=== PATIENT | female | born 1930 | race African-American/Black ===

== ENCOUNTER 2017-09-30 15:21 | Inpatient (IN) ==
[2017-09-30] MEDS ORDERED: ONDANSETRON 4 MG/2 ML VIAL IV STA (16:10)
[2017-09-30] MEDS ORDERED: SODIUM CHLORIDE 0.9% 500 ML IV STA (16:10)
[2017-09-30 17:30] LABS: Basophils # 0.1 10*3/uL (0.0-0.2); Basophils % 0.8 % (0.0-0.8); Eosinophils # 0.1 10*3/uL (0.0-0.87); Eosinophils % 2.1 % (0.00-10.9); Hematocrit 34.5 VOL% (35.7-47.0); Hemoglobin 10.5 GM/DL (12.0-16.0); Immature Granulocytes % 0.5 %; Immature Granulocytes Absolute 0.03 #; Lymphocytes # 1.7 10*3/uL (1.4-4.0); Lymphocytes % 27.3 % (21.3-54.2); Mean Corpuscular HGB Conc 30.4 GM/DL (32-36); Mean Corpuscular Hemoglobin 25 PG (27-34); Mean Corpuscular Volume 83.3 FL (87-102); Mean Platelet Volume 12.4 FL (9.6-12.0); Monocytes # 0.8 10*3/uL (0.11-0.8); Monocytes % 12.4 % (1.7-12.7); Neutrophils # 3.4 10*3/uL (1.4-7.4); Neutrophils % 56.9 % (38.7-73.9); Red Blood Count 4.14 MC/CUMM (3.8-5.5); Red Cell Distribution Width 14.9 % (9.3-17.3); White Blood Count 6.1 T/CUMM (4-12)
[2017-09-30] MEDS ORDERED: ONDANSETRON 4 MG/2 ML VIAL ONE (17:33)
[2017-09-30 17:34] LABS: Platelet Count 92 T/CUMM (130-400)
[2017-09-30 17:44] LABS: Apearance,Urine Slightly Hazy (Clear); Bacteria,Urine Occasional /HPF (Few); Bilirubin,Urine Negative (Negative); Blood, Urine Small mg/dL (Negative); Glucose,Urine (UA) Negative (Negative); Ketones,Urine Negative (Negative); Mucus,Urine Few /LPF (Occasional); Nitrite,Urine Negative (Negative); Protein,Urine 30 MG/DL; RBC,Urine 26 /HPF (0-4); Squamous Epithelial Cell,Urine Occasional /HPF (0-10); Urine Color Yellow (Yellow); Urine Specific Gravity 1.015 (1.001-1.035); Urine Urobilinogen < 2.0 EU/DL (0.2-1.0); WBC,Urine 63 /HPF (0-6)
[2017-09-30 17:51] LABS: Barbiturates Screen,Urine Negative (Negative); Benzodiazepines Screen,Urine Negative (Negative); Cannabinoid Screen,Urine Negative (Negative); Opiate Screen,Urine Negative (Negative); Phencyclidine Screen,Urine Negative (Negative)
[2017-09-30 17:52] LABS: Platelet Estimate Decreased
[2017-09-30 17:57] LABS: Ammonia 33 UMOL/L (11-32)
[2017-09-30 17:59] LABS: Alanine Aminotransferase 12 U/L (13-56); Albumin 3.2 G/DL (3.4-5.0); Alkaline Phosphatase 85 U/L (45-117); Aspartate Amino Transferase 20 U/L (0-37); Bilirubin,Total < 0.39 MG/DL (0.2-1.0); Blood Urea Nitrogen 19 MG/DL (7-18); Calcium 8.3 MG/DL (8.5-10.1); Glucose 91 MG/DL (74-106); Osmolality,Calculated 287.8 MOS/KG (273-304); Potassium 3.8 MMOL/L (3.5-5.1); Sodium 144 MMOL/L (136-145); Total Protein 6.4 G/DL (6.4-8.3); Troponin I Only 0.015 NG/ML (0.00-0.045)
[2017-09-30] MEDS ORDERED: LEVOFLOXACIN INJ 750 MG in PREMIX 1 EACH IV STA (18:20)
[2017-09-30] MEDS ORDERED: ONDANSETRON 4 MG/2 ML VIAL IV PRN (18:29)
[2017-09-30] MEDS ORDERED: SODIUM CHLORIDE 0.9% 1,000 ML IV SCH (18:30)
[2017-09-30] MEDS ORDERED: LEVOFLOXACIN INJ 150 ML IV ONE (18:33)
[2017-09-30] MEDS: SODIUM CHLORIDE 0.45% 1,000 ML IV SCH (19:28)
[2017-09-30 20:55] LABS: INR 1.2; PT Patient Result 12.3 SECS
[2017-09-30] MEDS ORDERED: ENOXAPARIN 40 MG/0.4 ML SYRINGE ONE (22:03)
[2017-09-30] MEDS: ENOXAPARIN 40 MG/0.4 ML SYRINGE SUBCUT SCH (22:08)
[2017-10-01 05:38] LABS: Basophils % 0.4 % (0.0-0.8); Eosinophils # 0.2 10*3/uL (0.0-0.87); Eosinophils % 3.8 % (0.00-10.9); Hematocrit 31.2 VOL% (35.7-47.0); Hemoglobin 9.7 GM/DL (12.0-16.0); Immature Granulocytes % 0.7 %; Immature Granulocytes Absolute 0.03 #; Lymphocytes # 1.5 10*3/uL (1.4-4.0); Lymphocytes % 33.3 % (21.3-54.2); Mean Corpuscular HGB Conc 31.1 GM/DL (32-36); Mean Corpuscular Hemoglobin 26 PG (27-34); Mean Corpuscular Volume 82.5 FL (87-102); Mean Platelet Volume 11.9 FL (9.6-12.0); Monocytes # 0.6 10*3/uL (0.11-0.8); Monocytes % 12.5 % (1.7-12.7); Neutrophils # 2.2 10*3/uL (1.4-7.4); Neutrophils % 49.3 % (38.7-73.9); Platelet Count 112 T/CUMM (130-400); Red Blood Count 3.78 MC/CUMM (3.8-5.5); Red Cell Distribution Width 14.9 % (9.3-17.3); White Blood Count 4.5 T/CUMM (4-12)
[2017-10-01 06:01] LABS: Albumin 2.5 G/DL (3.4-5.0); Bilirubin,Total 0.8 MG/DL (0.2-1.0); Calcium 7.6 MG/DL (8.5-10.1); Osmolality,Calculated 288.7 MOS/KG (273-304); Potassium 3.4 MMOL/L (3.5-5.1); Total Protein 5.2 G/DL (6.4-8.3)
[2017-10-01] MEDS: PANTOPRAZOLE 40 MG VIAL IV SCH (08:50)
[2017-10-01] MEDS: SODIUM CHLORIDE 0.45% 1,000 ML IV SCH ×2 (08:54→21:25)
[2017-10-01] MEDS ORDERED: LEVOFLOXACIN INJ 500 MG in PREMIX 1 EACH IV SCH (21:00)
[2017-10-01] MEDS: ENOXAPARIN 40 MG/0.4 ML SYRINGE SUBCUT SCH (21:25)
[2017-10-02] MEDS: SODIUM CHLORIDE 0.45% 1,000 ML IV SCH (05:16)
[2017-10-02 05:46] LABS: Basophils % 0.6 % (0.0-0.8); Eosinophils # 0.2 10*3/uL (0.0-0.87); Eosinophils % 3.1 % (0.00-10.9); Hematocrit 34.3 VOL% (35.7-47.0); Hemoglobin 10.6 GM/DL (12.0-16.0); Immature Granulocytes % 0.4 %; Immature Granulocytes Absolute 0.02 #; Lymphocytes # 1.7 10*3/uL (1.4-4.0); Lymphocytes % 35.1 % (21.3-54.2); Mean Corpuscular HGB Conc 30.9 GM/DL (32-36); Mean Corpuscular Hemoglobin 26 PG (27-34); Mean Corpuscular Volume 82.5 FL (87-102); Mean Platelet Volume 12.3 FL (9.6-12.0); Monocytes # 0.4 10*3/uL (0.11-0.8); Monocytes % 9.1 % (1.7-12.7); Neutrophils # 2.5 10*3/uL (1.4-7.4); Neutrophils % 51.7 % (38.7-73.9); Platelet Count 128 T/CUMM (130-400); Red Blood Count 4.16 MC/CUMM (3.8-5.5); Red Cell Distribution Width 14.6 % (9.3-17.3); White Blood Count 4.8 T/CUMM (4-12)
[2017-10-02 06:21] LABS: Calcium 8.1 MG/DL (8.5-10.1); Osmolality,Calculated 286.8 MOS/KG (273-304); Potassium 3.7 MMOL/L (3.5-5.1)
[2017-10-02] MEDS: PANTOPRAZOLE 40 MG VIAL IV SCH (09:14)
[2017-10-02 11:47] VITALS: BP 159/77
== END 2017-10-02 11:58 | disposition home health service (06) | DRG 689 ==
LOC: EDBD → EDUNIT# → N.ED 15:21 → N.EDINP 18:26 → N.TELES 21:15

== ENCOUNTER 2019-02-19 09:03 | Observation (INO) ==
[2019-02-19] MEDS ORDERED: ONDANSETRON 4 MG/2 ML VIAL IV STA (09:30)
[2019-02-19 12:17] LABS: Apearance,Urine CLEAR (Clear); Bilirubin,Urine Negative (Negative); Blood, Urine Small mg/dL (Negative); Glucose,Urine (UA) Negative (Negative); Ketones,Urine Negative (Negative); Mucus,Urine Occasional /LPF (Occasional); Nitrite,Urine Negative (Negative); Protein,Urine Negative; RBC,Urine 6 /HPF (0-4); Urine Color Straw (Yellow); Urine Specific Gravity 1.011 (1.001-1.035); Urine Urobilinogen < 2.0 EU/DL (0.2-1.0); WBC,Urine 11 /HPF (0-6)
[2019-02-19 12:17] LABS: Alanine Aminotransferase 14 U/L (13-56); Albumin 3.6 G/DL (3.4-5.0); Alkaline Phosphatase 77 U/L (45-117); Aspartate Amino Transferase 19 U/L (0-37); Blood Urea Nitrogen 30 MG/DL (7-18); Calcium 8.5 MG/DL (8.5-10.1); Glucose 78 MG/DL (74-106); Osmolality,Calculated 287.1 MOS/KG (273-304); Total Protein 7.1 G/DL (6.4-8.3); Troponin I < 0.015 NG/ML (0.00-0.045)
[2019-02-19] MEDS ORDERED: LABETALOL 20 MG/4 ML SYRINGE IV PRN (13:12)
[2019-02-19] MEDS ORDERED: MELOXICAM 7.5 MG TABLET PO PRN (13:16)
[2019-02-19] MEDS ORDERED: hydrALAZINE 20 MG/1 ML VIAL IV PRN (13:17)
[2019-02-19] MEDS ORDERED: amLODIPine 10 MG TABLET PO SCH (13:30)
[2019-02-19 13:37] LABS: Risk Ratio 3.14; VLDL CHOLESTEROL 13.6 MG/DL
[2019-02-19 15:13] LABS: INR 1.1; Partial Thromboplastin Time 26.3 SECS (0-40)
[2019-02-19 15:23] LABS: Basophils % 0.6 % (0.0-0.8); Eosinophils # 0.1 10*3/uL (0.0-0.87); Eosinophils % 2.1 % (0.00-10.9); Immature Granulocytes % 0.4 %; Immature Granulocytes Absolute 0.02 #; Lymphocytes # 1.7 10*3/uL (1.4-4.0); Lymphocytes % 33.3 % (21.3-54.2); Mean Corpuscular HGB Conc 29.8 GM/DL (32-36); Mean Corpuscular Volume 92.6 FL (87-102); Mean Platelet Volume 11.6 FL (9.6-12.0); Monocytes % 12.1 % (1.7-12.7); Neutrophils % 51.5 % (38.7-73.9); Platelet Count 137 T/CUMM (130-400); Red Cell Distribution Width 15.3 % (9.3-17.3); White Blood Count 5.2 T/CUMM (4-12)
[2019-02-19 15:28] LABS: Hematocrit 35.2 VOL% (35.7-47.0); Hemoglobin 10.5 GM/DL (12.0-16.0)
[2019-02-19 17:42] LABS: Barbiturates Screen,Urine Negative (Negative); Benzodiazepines Screen,Urine Negative (Negative); Cannabinoid Screen,Urine Negative (Negative); Opiate Screen,Urine Negative (Negative); Phencyclidine Screen,Urine Negative (Negative)
[2019-02-19] MEDS: ENOXAPARIN 40 MG/0.4 ML SYRINGE SUBCUT SCH (18:01)
[2019-02-19] MEDS: LOSARTAN 25 MG TABLET PO SCH ×2 (18:01→21:15)
[2019-02-19] MEDS: CARVEDILOL 12.5 MG TABLET PO SCH ×2 (18:01→21:15)
[2019-02-19] MEDS: ASPIRIN 325 MG TABLET PO SCH (18:01)
[2019-02-19] MEDS ORDERED: DONEPEZIL 5 MG TABLET PO SCH (21:00)
[2019-02-19] MEDS ORDERED: ATORVASTATIN 40 MG TABLET PO SCH (21:00)
[2019-02-20 03:35] LABS: Basophils % 0.4 % (0.0-0.8); Eosinophils # 0.2 10*3/uL (0.0-0.87); Hematocrit 32.8 VOL% (35.7-47.0); Hemoglobin 9.9 GM/DL (12.0-16.0); Immature Granulocytes % 0.2 %; Immature Granulocytes Absolute 0.01 #; Lymphocytes # 1.5 10*3/uL (1.4-4.0); Lymphocytes % 30.3 % (21.3-54.2); Mean Corpuscular HGB Conc 30.2 GM/DL (32-36); Mean Corpuscular Volume 90.9 FL (87-102); Mean Platelet Volume 11.5 FL (9.6-12.0); Monocytes % 11.4 % (1.7-12.7); Neutrophils % 54.7 % (38.7-73.9); Platelet Count 119 T/CUMM (130-400); Red Blood Count 3.61 MC/CUMM (3.8-5.5); Red Cell Distribution Width 15.1 % (9.3-17.3)
[2019-02-20 04:04] LABS: Calcium 8.6 MG/DL (8.5-10.1); Osmolality,Calculated 289.8 MOS/KG (273-304)
[2019-02-20] MEDS ORDERED: SPIRONOLACTONE 100 MG TABLET PO SCH (09:00)
[2019-02-20] MEDS: LOSARTAN 25 MG TABLET PO SCH (09:39)
[2019-02-20] MEDS: ASPIRIN 325 MG TABLET PO SCH (09:39)
[2019-02-20] MEDS: CARVEDILOL 12.5 MG TABLET PO SCH (09:39)
[2019-02-20 13:00] VITALS: BP 140/73
[2019-02-20] MEDS ORDERED: ACETAMINOPHEN 325 MG TABLET PO ONE (13:23)
[2019-02-20] MEDS: ENOXAPARIN 40 MG/0.4 ML SYRINGE SUBCUT SCH (13:50)
[2019-02-20] MEDS ORDERED: APIXABAN 2.5 MG TABLET PO SCH (21:00)
== END 2019-02-20 15:27 | disposition home or self-care (01) ==
LOC: EDUNIT# → N.ED 09:03 → N.EDINP 09:03 → N.4E 13:29
PROVIDERS: ADMIT Internal Medicine; ATTEND Internal Medicine

== ENCOUNTER 2022-04-26 14:35 | Inpatient (IN) ==
[2022-04-26 15:09] LABS: INR 1.1; PT Patient Result 12.4 SECS (10.1-12.1); Partial Thromboplastin Time 25.7 SECS (23.7-32.9)
[2022-04-26] MEDS ORDERED: LABETALOL 20 MG/4 ML SYRINGE IV ONE (15:12)
[2022-04-26 15:13] LABS: Arterial Base Excess iSTAT 1 MMOL/L (-2.5-2.5); Arterial O2 Saturation iSTAT 95 % (95-100); Arterial PCO2 iSTAT 43 MM HG (35-48); Arterial PO2 iSTAT 77 MM HG (80-95); Arterial Total CO2 iSTAT 27 MMO/L (23-27)
[2022-04-26] MEDS ORDERED: LABETALOL 20 MG/4 ML SYRINGE IV STA (15:13)
[2022-04-26 15:25] LABS: Bilirubin,Total 0.4 MG/DL (0.20-1.00); Calcium 8.2 MG/DL (8.5-10.1); Osmolality,Calculated 291.6 MOS/KG (273-304); Potassium 3.7 MMOL/L (3.5-5.1)
[2022-04-26 15:35] LABS: Basophils # 0.1 10*3/uL (0.0-0.2); Basophils % 0.9 % (0.0-0.8); Eosinophils # 0.1 10*3/uL (0.0-0.87); Eosinophils % 2.2 % (0.00-10.9); Hematocrit 31.3 VOL% (35.7-47.0); Hemoglobin 9.1 GM/DL (12.0-16.0); Immature Granulocytes % 0.4 %; Immature Granulocytes Absolute 0.02 #; Lymphocytes # 1.6 10*3/uL (1.4-4.0); Lymphocytes % 30.1 % (21.3-54.2); Mean Corpuscular HGB Conc 29.1 GM/DL (32-36); Mean Corpuscular Volume 79.2 FL (87-102); Monocytes # 0.6 10*3/uL (0.11-0.8); Monocytes % 11.3 % (1.7-12.7); Neutrophils % 55.1 % (38.7-73.9); Platelet Count 134 T/CUMM (130-400); Red Blood Count 3.95 MC/CUMM (3.8-5.5); White Blood Count 5.4 T/CUMM (4-12)
[2022-04-26] MEDS ORDERED: DEXTROSE 10% 250 ML BAG IV PRN (16:55)
[2022-04-26] MEDS ORDERED: ONDANSETRON 4 MG/2 ML VIAL IV PRN (16:55)
[2022-04-26] MEDS ORDERED: GLUCAGON 1 MG VIAL IM PRN (16:55)
[2022-04-26] MEDS: SODIUM CHLORIDE 0.45% 1,000 ML IV SCH (19:50)
[2022-04-26] MEDS: hydrALAZINE 20 MG/1 ML VIAL IV PRN (19:54)
[2022-04-26] MEDS ORDERED: ENOXAPARIN 30 MG/0.3 ML SYRINGE SUBCUT SCH (21:00)
[2022-04-27 01:03] LABS: Basophils % 0.4 % (0.0-0.8); Eosinophils % 0.3 % (0.00-10.9); Hematocrit 32.5 VOL% (35.7-47.0); Hemoglobin 9.5 GM/DL (12.0-16.0); Immature Granulocytes % 0.3 %; Immature Granulocytes Absolute 0.02 #; Lymphocytes # 1.2 10*3/uL (1.4-4.0); Mean Corpuscular HGB Conc 29.2 GM/DL (32-36); Mean Corpuscular Volume 78.7 FL (87-102); Mean Platelet Volume 10.7 FL (9.6-12.0); Monocytes # 0.6 10*3/uL (0.11-0.8); Platelet Count 158 T/CUMM (130-400); Red Blood Count 4.13 MC/CUMM (3.8-5.5); Red Cell Distribution Width 16.9 % (9.3-17.3); White Blood Count 6.8 T/CUMM (4-12)
[2022-04-27 01:26] LABS: Albumin 2.9 G/DL (3.4-5.0); Bilirubin,Total 0.5 MG/DL (0.20-1.00); Calcium 8.5 MG/DL (8.5-10.1); Risk Ratio 2.58; Total Protein 6.1 G/DL (6.4-8.2); VLDL Cholesterol 9.8 MG/DL
[2022-04-27] MEDS: POTASSIUM CHLORIDE RIDER 10 MEQ/100 ML PREMIX IV PRN ×4 (03:30→08:09)
[2022-04-27] MEDS: PANTOPRAZOLE 40 MG VIAL IV SCH (08:33)
[2022-04-27] MEDS ORDERED: ENOXAPARIN 30 MG/0.3 ML SYRINGE SUBCUT SCH (11:00)
[2022-04-27] MEDS: hydrALAZINE 20 MG/1 ML VIAL IV PRN (12:46)
[2022-04-27] MEDS ORDERED: cefTRIAXone 1,000 MG in SODIUM CHLORIDE 0.9% 100 ML IV SCH (17:00)
[2022-04-27 17:13] LABS: Bacteria,Urine Many /HPF (Few); Bilirubin,Urine Negative (Negative); Blood, Urine Negative (Negative); Glucose,Urine (UA) Negative (Negative); Ketones,Urine Negative (Negative); Mucus,Urine Occasional /LPF (Occasional); Nitrite,Urine Negative (Negative); Protein,Urine Trace mg/dL (Negative); RBC,Urine 2 /HPF (0-4); Squamous Epithelial Cell,Urine Occasional /HPF (0-10); Urine Appearance Clear (Clear); Urine Color Yellow (Yellow); Urine Specific Gravity 1.015 (1.001-1.035); Urine Urobilinogen 0.2 eU/dL (<2.0); Urine pH 7.5 (4.5-8.0)
[2022-04-27] MEDS: SODIUM CHLORIDE 0.45% 1,000 ML IV SCH (17:13)
[2022-04-27] MEDS: VANCOMYCIN INJ 1,250 MG in SODIUM CHLORIDE 0.9% 250 ML IV SCH (17:34)
[2022-04-27] MEDS: MELATONIN 3 MG TABLET PO SCH (21:55)
[2022-04-28] MEDS: SODIUM CHLORIDE 0.45% 1,000 ML IV SCH ×2 (01:27→23:15)
[2022-04-28 08:48] LABS: Calcium 8.7 MG/DL (8.5-10.1); Osmolality,Calculated 284.8 MOS/KG (273-304); Potassium 3.6 MMOL/L (3.5-5.1)
[2022-04-28] MEDS: PANTOPRAZOLE 40 MG VIAL IV SCH (09:16)
[2022-04-28 09:42] LABS: Basophils # 0.1 10*3/uL (0.0-0.2); Eosinophils # 0.1 10*3/uL (0.0-0.87); Eosinophils % 1.7 % (0.00-10.9); Hematocrit 30.6 VOL% (35.7-47.0); Hemoglobin 9.1 GM/DL (12.0-16.0); Immature Granulocytes % 0.2 %; Immature Granulocytes Absolute 0.01 #; Lymphocytes # 1.3 10*3/uL (1.4-4.0); Lymphocytes % 24.5 % (21.3-54.2); Mean Corpuscular HGB Conc 29.7 GM/DL (32-36); Mean Corpuscular Volume 77.7 FL (87-102); Mean Platelet Volume 11.4 FL (9.6-12.0); Monocytes # 0.7 10*3/uL (0.11-0.8); Monocytes % 13.6 % (1.7-12.7); Platelet Count 165 T/CUMM (130-400); Red Blood Count 3.94 MC/CUMM (3.8-5.5); White Blood Count 5.2 T/CUMM (4-12)
[2022-04-28] MEDS: MEMANTINE 5 MG TABLET PO SCH ×2 (11:33→21:31)
[2022-04-28] MEDS: QUEtiapine 25 MG TABLET PO SCH (11:33)
[2022-04-28] MEDS ORDERED: HALOPERIDOL 5 MG/ML AMP IM ONE (12:11)
[2022-04-28] MEDS ORDERED: HALOPERIDOL 5 MG/ML AMP IM PRN (15:41)
[2022-04-28] MEDS: hydrALAZINE 20 MG/1 ML VIAL IV PRN (17:26)
[2022-04-28] MEDS: VANCOMYCIN INJ 1,250 MG in SODIUM CHLORIDE 0.9% 250 ML IV SCH (17:26)
[2022-04-28] MEDS: MELATONIN 3 MG TABLET PO SCH (21:31)
[2022-04-29] MEDS: hydrALAZINE 20 MG/1 ML VIAL IV PRN (05:08)
[2022-04-29 05:31] LABS: Basophils % 0.8 % (0.0-0.8); Eosinophils # 0.1 10*3/uL (0.0-0.87); Eosinophils % 2.3 % (0.00-10.9); Hematocrit 29.9 VOL% (35.7-47.0); Immature Granulocytes % 0.3 %; Immature Granulocytes Absolute 0.01 #; Lymphocytes % 25.8 % (21.3-54.2); Mean Corpuscular HGB Conc 30.1 GM/DL (32-36); Mean Corpuscular Volume 76.9 FL (87-102); Mean Platelet Volume 10.6 FL (9.6-12.0); Monocytes # 0.5 10*3/uL (0.11-0.8); Monocytes % 13.4 % (1.7-12.7); Neutrophils % 57.4 % (38.7-73.9); Platelet Count 146 T/CUMM (130-400); Red Blood Count 3.89 MC/CUMM (3.8-5.5); Red Cell Distribution Width 17.2 % (9.3-17.3); White Blood Count 3.9 T/CUMM (4-12)
[2022-04-29 05:46] LABS: Calcium 8.4 MG/DL (8.5-10.1); Osmolality,Calculated 285.7 MOS/KG (273-304); Potassium 2.9 MMOL/L (3.5-5.1)
[2022-04-29] MEDS: MEMANTINE 5 MG TABLET PO SCH ×2 (08:15→21:23)
[2022-04-29] MEDS: QUEtiapine 25 MG TABLET PO SCH (08:15)
[2022-04-29] MEDS: POTASSIUM CHLORIDE RIDER 10 MEQ/100 ML PREMIX IV PRN ×5 (08:16→13:17)
[2022-04-29] MEDS: PANTOPRAZOLE 40 MG VIAL IV SCH (08:16)
[2022-04-29] MEDS: VANCOMYCIN INJ 1,250 MG in SODIUM CHLORIDE 0.9% 250 ML IV SCH (17:37)
[2022-04-29] MEDS: MELATONIN 3 MG TABLET PO SCH (21:23)
[2022-04-29] MEDS: SODIUM CHLORIDE 0.45% 1,000 ML IV SCH (23:45)
[2022-04-30 09:20] VITALS: BP 164/91
[2022-04-30] MEDS: QUEtiapine 25 MG TABLET PO SCH (10:32)
[2022-04-30] MEDS: MEMANTINE 5 MG TABLET PO SCH (10:32)
[2022-04-30] MEDS: PANTOPRAZOLE 40 MG VIAL IV SCH (10:33)
[2022-04-30] MEDS: SODIUM CHLORIDE 0.45% 1,000 ML IV SCH (10:36)
[2022-05-01] MEDS ORDERED: PANTOPRAZOLE 40 MG TABLET PO SCH (06:30)
== END 2022-04-30 11:47 | disposition home health service (06) | DRG 71 ==
LOC: N.EDINP 14:35 → N.ED 14:35 → SUATTDRO 16:55 → N.TELEN 19:00
PROVIDERS: ADMIT Internal Medicine; ATTEND Internal Medicine